=== PATIENT | female | born 1995 | race Caucasian/White ===

== ENCOUNTER 2017-01-31 11:45 | Emergency (ER) | payer OTHER ==
[2017-01-31 12:32] VITALS: BP 142/84; PULSE 78; RESP 18; TEMP 98.2; O2SAT 97
--- NOTE | 2017-01-31 13:25 | UCPHY ---
H & P Time Seen by Provider: 01/31/17 12:44 Patient Type: New HPI/ROS: This patient presents with a chief complaint of anxiety and vertigo. Vertigo began yesterday and she describes a sense of movement and being off balance but denies nausea, vomiting, diplopia, tinnitus. The vertigo has been intermittent and lasts only briefly. It is worsened by movement and extinguishes when being still. Patient feels anxious and requests a prescription for Xanax. She is from [place] and will be traveling home in 2 weeks. The patient was told to be checked for lice by her employer. She denies any scalp itching at this time although approximately 2 weeks ago she did and thought she had lice then used RID and symptoms resolved. REVIEW OF SYSTEMS: Constitutional: No fever, feels anxious and at times fatigue Eyes: No diplopia or visual blurring ENT: No sore throat, nasal congestion, ear pain or tinnitus Respiratory: Denies cough or shortness of breath Gastrointestinal: No nausea or vomiting Genitourinary: Not addressed Musculoskeletal: Denies neck pain or back pain Skin: No rash Neurological: Denies headache Smoking Status: Never smoked Physical Exam: GENERAL: Well-appearing, well-nourished and in no acute distress. She does not appear to be anxious. HEAD: Atraumatic, normocephalic. There is no evidence of lice present either in the foot form of mature individuals or aches. EYES: Pupils equal round and reactive to light, extraocular movements intact, sclera anicteric, conjunctiva are normal. There is no nystagmus ENT: TMs normal, nares patent, oropharynx clear without exudates. Moist mucous membranes. NECK: Normal range of motion, supple without lymphadenopathy or JVD. HEART: Regular rate and rhythm EXTREMITIES: Normal range of motion, no pitting or edema. No clubbing or cyanosis. NEUROLOGICAL: Cranial nerves II through XII grossly intact. Normal speech, normal gait. There are no motor or course sensory abnormalities PSYCH: Normal mood, normal affect. SKIN: Warm, dry, normal turgor, no visible rashes or lesions. Constitutional: Initial Vital Signs Temperature (C) 36.8 C 01/31/17 12:29 Heart Rate 78 01/31/17 12:29 Respiratory Rate 18 01/31/17 12:29 Blood Pressure 142/84 H 01/31/17 12:29 O2 Sat (%) 97 01/31/17 12:29 O2 Delivery Mode Room Air Allergies/Adverse Reactions: No Known Allergies Allergy (Unverified 01/31/17 12:28) Home Medications: Medication Instructions Recorded ALPRAZolam [Xanax 0.25 MG (*)] 0.25 mg PO TID #12 tab 01/31/17 Departure - Departure Disposition: Home, Routine, Self-Care Clinical Impression: Anxiety Benign positional vertigo Qualifiers: Laterality: unspecified laterality Qualified Code(s): H81.10 - Benign paroxysmal vertigo, unspecified ear Condition: Good Instructions: Benign Paroxysmal Positional Vertigo (ED) Additional Instructions: If your anxiety persists follow-up dear at home. If the vertigo has not resolved completely in 5 days you should be re-evaluated. I find no evidence of head lice. Referrals: NONE *PRIMARY CARE P,. [Primary Care Provider] - As per Instructions Prescriptions: ALPRAZolam [Xanax 0.25 MG (*)] 0.25 mg PO TID #12 tab - PQRS PQRS Measurement: Not applicable
== END 2017-01-31 13:43 | disposition home or self-care (01) ==
LOC: CED 11:45
DX: H81.10 Benign paroxysmal vertigo, unspecified ear (principal); F41.9 Anxiety disorder, unspecified
CPT/HCPCS: 99203-PO; G0463-PO